=== PATIENT | male | born 1935 | race Caucasian/White ===

== ENCOUNTER → 2018-12-10 | Outpatient (CLI) | payer OTHER | LOC: RAD 15:31 | DX: J18.9 Pneumonia, unspecified organism (principal); R50.9 Fever, unspecified ==

== ENCOUNTER → 2020-06-06 | Outpatient (CLI) | payer OTHER | LOC: RAD 10:34 | PROVIDERS: ATTEND Internal Medicine | DX: M54.12 Radiculopathy, cervical region (principal) ==